=== PATIENT | male | born 1990 | race Caucasian/White ===

== ENCOUNTER → 2016-09-05 | Outpatient (CLI) | payer OTHER ==
--- NOTE | 2016-09-05 17:15 | Diagnostic Imaging Report ---
PROCEDURE: MRI left joint lower extremity without contrast. TECHNIQUE: Multiplanar, multisequence non contrast-enhanced MRI of the left lower extremity was accomplished. INDICATION: Left knee pain after injury. The patient tried to miss a hole and thinks might have dislocated his knee. FINDINGS: There is a prominent bone marrow contusion involving the posterior aspect of the tibial condyles and in the femoral condyles particularly along the lateral aspect. There is a mildly depressed fracture along the anterior aspect of the weightbearing portion of the lateral femoral condyle. There is no definite focal cartilage defect seen. There is a moderate joint effusion. There is a full-thickness tear of the proximal aspect of the ACL. The PCL is intact. The extensor mechanism is intact. No definite tear is seen in the medial or lateral meniscus. The MCL demonstrates a mild sprain with no significant tear of its fibers. The lateral collateral ligament complex components appear stable. There is a small Chen's cyst measuring 1.9 x 1.5 x 3.3 cm with a small amount of leakage around it seen. The articular cartilage appears intact. IMPRESSION: 1. Full-thickness tear of the ACL. 2. Mild focally depressed cortical fracture of the anterior portion of the weightbearing aspect of the lateral femoral condyle. Message left on Wing Guadalupe's cell phone at 5:13 p.m. 09/05/2016/cb Dictated by: Dictated on workstation # [id number]
== END ==
LOC: RAD 15:45
PROVIDERS: ATTEND Nurse Practitioner
DX: S83.095A Other dislocation of left patella, initial encounter (principal); S83.242A Other tear of medial meniscus, current injury, left knee, initial encounter; X58.XXXA Exposure to other specified factors, initial encounter; Y99.8 Other external cause status
CPT/HCPCS: 73721